=== PATIENT | female | born 1975 | race Caucasian/White ===

== ENCOUNTER 2019-07-18 03:06 | Emergency (ER) | payer MEDICAID ==
[~2019-07-18] VITALS: Ht 170.2 cm; Wt 91.0 kg
[2019-07-18] MEDS ORDERED: KETOROLAC 30MG/ML VIAL IV STA (03:16)
[2019-07-18] MEDS ORDERED: SODIUM CHLORIDE 0.9% 1,000 ML IV ONE (03:16)
[2019-07-18] MEDS ORDERED: MORPHINE SULFATE 4 MG/ML CPJ (NOT FOR IM USE) IV ONE (03:30)
[2019-07-18] MEDS ORDERED: CEFAZOLIN 1000MG PREMIX 50 ML IV ONE (03:30)
[2019-07-18] MEDS ORDERED: BACITRACIN ZINC OINT UDPKT TOP ONE (03:30)
[2019-07-18] MEDS ORDERED: LIDOCAINE HCL/EPINEPHRINE 1%-EPI 1:100,000 20 ML VIAL INFIL ONE (03:30)
[2019-07-18] MEDS ORDERED: TETANUS, DIPHTHERIA, PERTUSSIS VAC/PF 0.5ML (>7YR OLD) IM ONE (03:30)
[2019-07-18 03:42] LABS: BASOPHILS % 0.5 % (0.0-2.0); EOSINOPHILS % 0.9 % (0.0-5.0); HEMATOCRIT. 35.9 % (36.0-48.0); HEMOGLOBIN. 11.7 g/dL (12.0-16.0); LYMPHOCYTES % 30.4 % (20.0-50.0); MEAN CORPUSCULAR HEMOGLOBIN 26.7 pg (28.0-32.0); MEAN CORPUSCULAR VOLUME 82.3 fL (81.0-99.0); MEAN PLATELET VOLUME 9.7 fl (7.4-10.4); MONOCYTES % 6.4 % (2.0-8.0); NEUTROPHILS % 61.8 % (40.0-76.0); PLATELET 236 x1000/uL (130-400); RED BLOOD CELL COUNT 4.37 mill/uL (4.2-5.4)
[2019-07-18 03:43] LABS: CHLORIDE 108 mEq/L (98-107)
[2019-07-18 03:46] LABS: PARTIAL THROMBOPLASTIN TIME 23.3 sec (23.4-31.0); PROTHROMBIN TIME 10.6 sec (9.6-11.0)
[2019-07-18 03:48] LABS: HCG SCREEN NEGATIVE
[2019-07-18 05:37] LABS: CLARITY URINE CLOUDY (CLEAR); COLOR URINE YELLOW (YELLOW); KETONES URINE NEGATIVE (NEGATIVE); LEUKOCYTE ESTERASE URINE 2+ (NEGATIVE); NITRITE URINE NEGATIVE (NEGATIVE); OCCULT BLOOD URINE 2+ (NEGATIVE); PROTEIN URINE NEGATIVE (NEGATIVE); SPECIFIC GRAVITY URINE 1.017 (1.005-1.030); UROBILINOGEN URINE 0.2 E.U./dL (0.2-1.0)
[2019-07-18] MEDS ORDERED: BACITRACIN 15GM TUBE TOP SCH (06:15)
[2019-07-18 06:41] VITALS: BP 138/62
== END 2019-07-18 07:01 | disposition home or self-care (01) ==
LOC: ER 03:06
DX: S01.81XA Laceration without foreign body of other part of head, initial encounter (principal); X58.XXXA Exposure to other specified factors, initial encounter; Y93.89 Activity, other specified; Y92.89 Other specified places as the place of occurrence of the external cause; Y99.8 Other external cause status
CPT/HCPCS: 12013; 36415; 70450; 70486; 71045; 72125; 72170; 80053; 81003; 81025; 83690; 84703; 85025; 85610; 85730; 86850; 86900; 86901; 90471; 90715; 96365; 96375; 99291; J0690; J1885; J2270; J3490; J7030

== ENCOUNTER 2019-07-26 10:19 | Emergency (ER) | payer MEDICAID ==
[~2019-07-26] VITALS: Ht 167.6 cm; Wt 83.0 kg
[2019-07-26 11:29] VITALS: BP 145/74
== END 2019-07-26 13:22 | disposition home or self-care (01) ==
LOC: ER 10:19
DX: Z48.02 Encounter for removal of sutures (principal)
CPT/HCPCS: 99281